=== PATIENT | female | born 1950 | race African-American/Black ===

== ENCOUNTER 2017-09-21 13:23 | Emergency (ER) | payer OTHER ==
[~2017-09-21] VITALS: Ht 167.6 cm; Wt 80.3 kg
[~2017-09-21 13:23] MED LIST: ACCUNEB SO1.25 MG/1; HYDROCHLOROTHIA25 M1 PO; LORATIDINE 10 M10 M1 PO; NORCO 5-325 TA1 EACH PO; NORVASC10 MG PO; TIROSINT100 MCG PO
[2017-09-21 14:12] LABS: HEMATOCRIT 42.6 % (37.0-47.0); HEMOGLOBIN 14.2 gm/dL (12.0-15.0); MCH 29.1 pg (26.0-34.0); MCHC 33.3 g/dL (28.0-37.0); MCV 87.4 fL (80.0-100.0); PLATELET COUNT 263 thou/uL (150-400); RBC 4.87 mil/uL (4.20-5.00); RDW 12.4 % (10.5-14.5); WBC 8.4 thou/uL (4.0-11.0)
[2017-09-21 14:22] LABS: CALCIUM 9.4 mg/dL (8.5-10.1); CREATININE 0.9 mg/dL (0.6-1.0)
[2017-09-21 14:22] LABS: HCO3 25.4 mmol/L (22.0-26.0); PCO2 VENOUS 35.9 mmHg (41.0-51.0); PO2 VENOUS 227.8 mmHg (35.0-45.0)
[2017-09-21 14:25] LABS: POTASSIUM 2.9 mmol/L (3.5-5.1)
[2017-09-21 14:29] LABS: TOTAL BILIRUBIN 0.8 mg/dL (<0.1-1.0)
[2017-09-21 14:32] LABS: URINE BILIRUBIN 2+ (Negative); URINE BLOOD NEGATIVE (Negative); URINE CLARITY CLEAR; URINE COLOR YELLOW; URINE GLUCOSE-RANDOM* 2+ (Negative); URINE KETONES 3+ (Negative); URINE LEUKOCYTES-REFLEX NEGATIVE (Negative); URINE NITRITE-REFLEX NEGATIVE (Negative); URINE PROTEIN (DIPSTICK) TRACE (Negative); URINE SPECIFIC GRAVITY >= 1.030 (1.005-1.035); URINE UROBILINOGEN 0.2 E.U./dl (0.2-1.0)
[2017-09-21 14:37] LABS: ICTOTEST (BILI CONFIRMATORY) Negative (Negative)
[2017-09-21 14:44] LABS: ABSOLUTE NEUTROPHILS 2.9 thou/uL (1.4-8.2)
[2017-09-21] MEDS ORDERED: POTASSIUM20 PO (15:31)
[2017-09-21 16:23] VITALS: BP 140/48
== END 2017-09-21 16:24 | disposition home or self-care (01) ==
LOC: ER 13:23
PROVIDERS: Emergency Medicine
DX: R73.9 Hyperglycemia, unspecified (principal); I10 Essential (primary) hypertension; E03.9 Hypothyroidism, unspecified; J45.909 Unspecified asthma, uncomplicated; R35.0 Frequency of micturition